=== PATIENT | male | born 1985 | race Caucasian/White ===

== ENCOUNTER 2025-09-09 13:28 | Outpatient (CLI) | payer OTHER, SELFPAY ==
--- NOTE | 2025-09-09 13:35 | XR_ITS ---
WS: [id number] Exam: XR thoracic spine 2V [id number] Date/Time of Exam: 09/09/2025 1:40 PM Reason For Exam: ARTHRITIS No fracture or malalignment. Normal paraspinal soft tissues. The discs are preserved. Posterior elements are unremarkable. XR/XR thoracic spine 2V [id number] IMPRESSION: 1. Negative T-spine study.
--- NOTE | 2025-09-09 13:35 | XR_ITS ---
WS: [id number] Exam: XR lumbar spine 2-3V* [id number] Date/Time of Exam: 09/09/2025 1:40 PM Reason For Exam: ARTHRITIS DLP: No fracture or malalignment. Narrowing of the L5-S1 disc. Remaining discs are preserved. Normal posterior elements. Slight dextroscoliosis that is probably positional. XR/XR lumbar spine 2-3V* [id number] IMPRESSION: 1. Narrowing of the L5-S1 disc. The lumbar spine is otherwise unremarkable.
== END 2025-09-09 13:29 | disposition home or self-care (01) ==
LOC: RAD 13:30
PROVIDERS: Visit Provider Chiropractor
DX: M13.80 Other specified arthritis, unspecified site (principal); M48.061 Spinal stenosis, lumbar region without neurogenic claudication
CPT/HCPCS: 72070; 72100